=== PATIENT | male | born 1955 | race Hispanic/Latino ===

== ENCOUNTER → 2018-02-24 | Outpatient (CLI) | payer MEDICARE ==
[~2018-02-24] MED LIST: ALLO100T PO; ASPI-1026 PO; CARV25TA PO; CYAN250014 PO; DIGO0.12 PO; DILT120C47 PO; FURO40TA5 PO; GLIM2TAB3 PO; INSU100V12 SQ; MELA3CAP PO; RANO10003 PO; RIVA20TA PO; SIMV40TA5 PO; VALS320T16 PO
== END | disposition home or self-care (01) ==
LOC: OIH 14:58
PROVIDERS: ATTEND Internal Medicine Cardiovascular Disease
DX: I25.810 Atherosclerosis of coronary artery bypass graft(s) without angina pectoris (principal); I65.23 Occlusion and stenosis of bilateral carotid arteries; I67.9 Cerebrovascular disease, unspecified
CPT/HCPCS: 93880

== ENCOUNTER 2019-03-28 07:45 | Emergency (ER) | payer MEDICARE ==
[~2019-03-28 07:45] MED LIST changes: -GLIM2TAB3 PO; +GLIM2TAB4 PO; +SIMV-46 PO; -SIMV40TA5 PO
[2019-03-28 08:29] LABS: BASOPHILS % (AUTO) 0.8 % (0.0-5.0); EOSINOPHILS % (AUTO) 0.7 % (0.0-8.0); LYMPHOCYTES % (AUTO) 7.2 % (21.0-51.0); MEAN CORPUSCULAR HEMOGLOBIN 31.2 pg (27.0-33.0); MEAN CORPUSCULAR HGB CONC 33.9 g/dL (32.0-36.0); MEAN CORPUSCULAR VOLUME 92.2 fL (79-99); MONOCYTES % (AUTO) 5.9 % (3.0-13.0); NEUTROPHILS % (AUTO) 85.4 % (40.0-77.0); NUCLEATED RED BLOOD CELLS 0.1 % (0.0-0.19); PLATELET COUNT (AUTO) 261 K/uL (130-400); RED BLOOD CELL COUNT(AUTO) 4.45 MIL/uL (4.50-6.20); RED CELL DISTRIBUTION WIDTH 14.1 % (11.0-15.5); WHITE BLOOD COUNT (AUTO) 9.1 K/uL (4.8-10.8)
[2019-03-28 08:31] LABS: APPEARANCE,URINE Clear (CLEAR); BILIRUBIN,URINE Negative (NEGATIVE); COLOR,URINE Yellow (YELLOW); GLUCOSE, URINE (UA) Negative (NEGATIVE); KETONES,URINE Negative (NEGATIVE); LEUKOCYTE ESTERASE ,URINE Negative (NEGATIVE); NITRATE,URINE Negative (NEGATIVE); OCCULT BLOOD,URINE Negative (NEGATIVE); PROTEIN,URINE POS 2+ mg/dL (NEGATIVE)
[2019-03-28 08:35] LABS: CREATININE 0.9 mg/dL (0.5-1.5); POTASSIUM 3.2 mmol/L (3.5-5.1)
[2019-03-28 08:38] LABS: BACTERIA,URINE Few /HPF (None Seen)
[2019-03-28 08:40] LABS: RBC,URINE None Seen /HPF (0-1); SQUAMOUS EPITHELIAL CELL,UR 0-2 /HPF (0-2)
[2019-03-28 08:42] LABS: ALBUMIN 3.4 g/dL (3.5-5.0); BILIRUBIN,TOTAL 0.5 mg/dL (0.2-1.0); TOTAL PROTEIN, SERUM 8.1 g/dL (6.0-8.3)
== END 2019-03-28 10:20 | disposition home or self-care (01) ==
LOC: EDH 07:45
DX: E11.649 Type 2 diabetes mellitus with hypoglycemia without coma (principal); I48.91 Unspecified atrial fibrillation; I11.0 Hypertensive heart disease with heart failure; I50.9 Heart failure, unspecified; Z87.891 Personal history of nicotine dependence
CPT/HCPCS: 36415; 80053; 81001; 82948; 85025